=== PATIENT | female | born 1940 | race Caucasian/White ===

== ENCOUNTER → 2017-01-31 | Outpatient (CLI) | payer MEDICARE, OTHER ==
--- NOTE | 2017-02-03 10:39 | MAM ---
EXAM DESCRIPTION: 3D Screening BILATERAL : Digital Mammography. CLINICAL HISTORY: 76 years Female SCREENING . No complaints. Remote family history of breast cancer. Postmenopausal. Used HRT 5 or more years ago.. COMPARISON: New Baseline study at this facility. No prior reports available. TECHNIQUE: Bilateral CC and MLO projection full-field images, 3-D tomosynthesis digital mammographic technique. Also bilateral synthesized CC/ MLO full-field images . CAD not utilized. FINDINGS: The breast parenchymal density pattern is: Heterogeneously dense breast tissue, which may obscure small masses. No skin thickening or nipple retraction bilateral solitary microcalcifications. No focal, stellate mass or density, focal asymmetry , and no suspicious microcalcifications bilaterally. IMPRESSION: BI-RADS CATEGORY: 2 - BENIGN FINDINGS. FOLLOW UP: Routine digital bilateral screening, one year interval from January 2017. Written communication explaining the IMPRESSION and follow-up, will be mailed to the patient and referring health care provider. According to the [employer], yearly mammograms are recommended starting at age 40 and continuing as long as a woman is in good health. Any breast change noted on a breast self-exam should be reported promptly to the patient's healthcare provider. Breast MRI is recommended for women with an approximately 20-25% or greater lifetime risk of breast cancer, including women with a strong family history of breast or ovarian cancer and women who have been treated for Hodgkin's disease. A negative mammographic report should not delay tissue diagnosis in patients with significant clinical history or physical findings. Extremely dense breast tissue limits the sensitivity of digital mammography. Electronically signed by: Josep Cota MD 02/03/2017 10:38 AM [facility]
== END ==
LOC: MAMMO 10:39
PROVIDERS: ATTEND Family Medicine
DX: Z12.31 Encounter for screening mammogram for malignant neoplasm of breast (principal); D51.3 Other dietary vitamin B12 deficiency anemia; R53.82 Chronic fatigue, unspecified; E34.9 Endocrine disorder, unspecified; E55.9 Vitamin D deficiency, unspecified
CPT/HCPCS: 77063; 82306; 82607; 84403; 84439; 84443; 84481; G0202

== ENCOUNTER → 2018-12-23 | Outpatient (CLI) | payer OTHER ==
--- NOTE | 2018-12-24 07:38 | MRI ---
EXAM DESCRIPTION: MRI right shoulder CLINICAL HISTORY: Right shoulder pain COMPARISON: None. TECHNIQUE: Multiplanar, multisequence MR images of the right shoulder FINDINGS: Severe glenohumeral osteoarthritis. Central scalloping, type A2 glenoid. Full-thickness chondral loss along both sides of the joint with bony remodeling. Large glenohumeral joint effusion and degenerative synovitis. Mild acromioclavicular osteoarthritis. Type II acromion with lateral downsloping and inferior lateral acromial spur. Structurally significant high-grade partial tear of the supraspinatus tendon sparing thin bursal sided fibers. Partial retraction of articular fibers to the mid humeral level. Moderate/severe muscle volume loss and grade 2 fatty infiltration. Partial articular and interstitial tear of the anterior infraspinatus tendon. Moderate to severe muscle volume loss and grade 2 fatty infiltration Teres minor tendon intact. Mild muscle volume loss and grade 1 fatty infiltration. Subscapularis tendinosis with mild tendon thinning. Muscle volume moderately to severely decreased with grade 2 fatty infiltration Long head biceps tendon normal in the bicipital groove and intra-articular. Labral anchor intact. Circumferential labral degeneration IMPRESSION: Severe glenohumeral osteoarthritis, type A2 glenoid Structurally significant high-grade partial tear of the supraspinatus tendon. Contiguous partial tear of the anterior infraspinatus tendon Electronically signed by: Gonzalo Vazquez MD 12/24/2018 7:37 AM [employer]
== END ==
LOC: MRI 13:18
PROVIDERS: ATTEND Family Medicine
DX: M19.011 Primary osteoarthritis, right shoulder (principal); S46.011A Strain of muscle(s) and tendon(s) of the rotator cuff of right shoulder, initial encounter

== ENCOUNTER → 2019-02-18 | Outpatient (CLI) | payer OTHER | LOC: GMAL 12:45 | PROVIDERS: ATTEND Family Medicine | DX: D51.3 Other dietary vitamin B12 deficiency anemia (principal); R53.83 Other fatigue; E55.9 Vitamin D deficiency, unspecified; E78.2 Mixed hyperlipidemia; Z79.899 Other long term (current) drug therapy ==

== ENCOUNTER → 2020-03-22 | Outpatient (CLI) | payer OTHER | LOC: GMAL 11:52 | PROVIDERS: ATTEND Family Medicine | DX: D51.3 Other dietary vitamin B12 deficiency anemia (principal); E78.2 Mixed hyperlipidemia; R53.82 Chronic fatigue, unspecified; E55.9 Vitamin D deficiency, unspecified; Z79.899 Other long term (current) drug therapy ==